=== PATIENT | female | born 1990 | race Caucasian/White ===

== ENCOUNTER 2017-01-15 19:19 | Emergency (ER) | payer OTHER ==
--- NOTE | 2017-01-15 20:51 | ED ORDER SUMMARY ---
..... Patient: TITA IRAHETA OrderSheet [facility] VisitID: [id number] [address] [place] [address] 26y, F Registration Date/Time: 01/15/2017 ORDER SHEET Weight: 73.9 kg Allergies: Iodine, Latex, Adhesive, Tramadol GENERAL ORDERS: UA-Culture if indicated Urgent (19:47 01/15/2017 Donavan Hood) (Ack 19:58 [place]) (20:22 Lina R.N.) Urine Urgent (19:47 01/15/2017 Donavan Hood) (Ack 19:58 [place]) (20:22 Lina R.N.) Lumbar Spine 2 or 3V Urgent (20:19 01/15/2017 Donavan Hood) (Ack 20:27 [place]) MEDICATION ORDERS: Toradol IM 60 mg (NOW) (20:19 01/15/2017 Donavan Hood) IV FLUIDS: ORDER SHEET NOTES: [Electronically signed by Vicente Carmen Dr. (20:52 01/15/2017)] [Electronically signed by Clara Moreno R.N. (21:55 01/15/2017)] [Electronically locked/signed by Clara Moreno R.N. (21:55 01/15/2017)]
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
--- NOTE | 2017-01-15 20:51 | ED ORDER SUMMARY ---
..... Patient: TITA IRAHETA OrderSheet [facility] VisitID: [id number] [address] [place] [address] 26y, F Registration Date/Time: 01/15/2017 ORDER SHEET Weight: 73.9 kg Allergies: Iodine, Latex, Adhesive, Tramadol GENERAL ORDERS: UA-Culture if indicated Urgent (19:47 01/15/2017 Donavan Hood) (Ack 19:58 [place]) (20:22 Lina R.N.) Urine Urgent (19:47 01/15/2017 Donavan Hood) (Ack 19:58 [place]) (20:22 Lina R.N.) Lumbar Spine 2 or 3V Urgent (20:19 01/15/2017 Donavan Hood) (Ack 20:27 [place]) MEDICATION ORDERS: Toradol IM 60 mg (NOW) (20:19 01/15/2017 Donavan Hood) IV FLUIDS: ORDER SHEET NOTES: [Electronically signed by Vicente Carmen Dr. (20:52 01/15/2017)] [Electronically signed by Clara Moreno R.N. (21:55 01/15/2017)] [Electronically locked/signed by Clara Moreno R.N. (21:55 01/15/2017)]
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
--- NOTE | 2017-01-15 21:56 | ED MAR SUMMARY ---
..... Medication Administration Record [facility] [address] [place] [address] Patient: TITA IRAHETA Visit ID: [id number] 26y, F Weight: 73.9 kg Height/Length: 62 in BMI: 29.8 ALLERGIES: Tramadol, Adhesive, Latex, Iodine Given 20:35 01/15/2017 Clara Moreno R.N. Medication Administered: TORADOL [IM] (KETOROLAC TROMETHAMINE), Dose: 60 mg IM. Medication Ordered: Toradol IM 60 mg (NOW).
--- NOTE | 2017-01-15 21:56 | ED DISCHARGE INSTRUCTIONS ---
Patient: TITA IRAHETA General Instructions [facility] VisitID: [id number] [address] [place] [address] 26y, F Registration Date/Time: 01/15/2017 INSTRUCTIONS No lifting greater than 10 lbs until well. Your Current Medications: CONTINUE TAKING THE FOLLOWING MEDICATIONS: Chlorpheniramine-Phenylephrine Oral : 0.5 mg BID prn. Gabapentin Oral : 300 mg 3x a day. KlonoPIN Oral : 0.5 mg 2x a day. Prescription Medications: Baclofen 10 mg: take 1 orally every 8 hours. Dispense thirty (30). No refills. Diclofenac 50 mg tablets: take 1 tablet orally every 8 hours as needed for pain or stiffness. Dispense thirty (30). No refill. Follow-up: Follow up with your doctor in about four days. Call for an appointment. Screening today revealed the patient's blood pressure to be in the pre-hypertensive range. The patient should follow up with a primary care provider for blood pressure management. No lifting greater than 10 lbs until well. (Electronically signed by Vicente Carmen Dr. 01/15/2017 20:52)
--- NOTE | 2017-01-15 21:56 | ED DISCHARGE INSTRUCTIONS ---
Patient: TITA IRAHETA General Instructions [facility] VisitID: [id number] [address] [place] [address] 26y, F Registration Date/Time: 01/15/2017 INSTRUCTIONS No lifting greater than 10 lbs until well. Your Current Medications: CONTINUE TAKING THE FOLLOWING MEDICATIONS: Chlorpheniramine-Phenylephrine Oral : 0.5 mg BID prn. Gabapentin Oral : 300 mg 3x a day. KlonoPIN Oral : 0.5 mg 2x a day. Prescription Medications: Baclofen 10 mg: take 1 orally every 8 hours. Dispense thirty (30). No refills. Diclofenac 50 mg tablets: take 1 tablet orally every 8 hours as needed for pain or stiffness. Dispense thirty (30). No refill. Follow-up: Follow up with your doctor in about four days. Call for an appointment. Screening today revealed the patient's blood pressure to be in the pre-hypertensive range. The patient should follow up with a primary care provider for blood pressure management. No lifting greater than 10 lbs until well. (Electronically signed by Vicente Carmen Dr. 01/15/2017 20:52)
--- NOTE | 2017-01-15 21:56 | ED MED RECONCILIATION SUMMARY ---
Patient: TITA IRAHETA Medication Reconciliation Report [facility] VisitID: [id number] [address] [place] [address] 26y, F Registration Date/Time: 01/15/2017 Weight: 73.9 kg Height/Length: 62 in. BMI: 29.8 ALLERGIES: Adhesive, Iodine, Latex, Tramadol The patient's Home Medications are listed below: CONTINUE TAKING THE FOLLOWING MEDICATIONS: Chlorpheniramine-Phenylephrine Oral 0.5 mg BID prn Gabapentin Oral 300 mg, 3x a day KlonoPIN Oral 0.5 mg, 2x a day The source(s) of the original Home Medication information: patient The following Medications were given to the patient in the Emergency Department: Toradol [IM] IM 60 mg, administered: 01/15/2017 8:35:00 PM The following Medications were prescribed to the patient: Baclofen 10 mg: take 1 orally every 8 hours. Dispense thirty (30). No refills. -- Vicente Carmen Dr. Diclofenac 50 mg tablets: take 1 tablet orally every 8 hours as needed for pain or stiffness. Dispense thirty (30). No refill. -- Vicente Carmen Dr.
--- NOTE | 2017-01-15 21:56 | ED MAR SUMMARY ---
..... Medication Administration Record [facility] [address] [place] [address] Patient: TITA IRAHETA Visit ID: [id number] 26y, F Weight: 73.9 kg Height/Length: 62 in BMI: 29.8 ALLERGIES: Tramadol, Adhesive, Latex, Iodine Given 20:35 01/15/2017 Clara Moreno R.N. Medication Administered: TORADOL [IM] (KETOROLAC TROMETHAMINE), Dose: 60 mg IM. Medication Ordered: Toradol IM 60 mg (NOW).
--- NOTE | 2017-01-15 21:56 | ED MED RECONCILIATION SUMMARY ---
Patient: TITA IRAHETA Medication Reconciliation Report VisitID: [id number] [address] [place] [address] 26y, F Registration Date/Time: 01/15/2017 Weight: 73.9 kg Height/Length: 62 in. BMI: 29.8 ALLERGIES: Adhesive, Iodine, Latex, Tramadol The patient's Home Medications are listed below: CONTINUE TAKING THE FOLLOWING MEDICATIONS: Chlorpheniramine-Phenylephrine Oral 0.5 mg BID prn Gabapentin Oral 300 mg, 3x a day KlonoPIN Oral 0.5 mg, 2x a day The source(s) of the original Home Medication information: patient The following Medications were given to the patient in the Emergency Department: Toradol [IM] IM 60 mg, administered: 01/15/2017 8:35:00 PM The following Medications were prescribed to the patient: Baclofen 10 mg: take 1 orally every 8 hours. Dispense thirty (30). No refills. -- Vicente aCrmen Dr. Diclofenac 50 mg tablets: take 1 tablet orally every 8 hours as needed for pain or stiffness. Dispense thirty (30). No refill. -- Vicente Carmen Dr.
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
== END 2017-01-16 01:56 | disposition home or self-care (01) ==
LOC: ED SRH 19:19
DX: S39.012A Strain of muscle, fascia and tendon of lower back, initial encounter (principal); V48.0XXA Car driver injured in noncollision transport accident in nontraffic accident, initial encounter; Y93.89 Activity, other specified; Y99.8 Other external cause status; Y92.410 Unspecified street and highway as the place of occurrence of the external cause; F17.210 Nicotine dependence, cigarettes, uncomplicated; Z88.8 Allergy status to other drugs, medicaments and biological substances; Z91.040 Latex allergy status; Z79.899 Other long term (current) drug therapy
CPT/HCPCS: 90004; 90469; 93070